=== PATIENT | male | born 1945 | race Caucasian/White ===

== ENCOUNTER 2021-04-02 06:11 | Day surgery (SDC) | payer MEDICARE, OTHER ==
[~2021-04-02] VITALS: Ht 180.3 cm; Wt 78.4 kg
[~2021-04-02 06:11] MED LIST: FINA5 PO; Inderal 20 mg T20 MG PO; METF500 PO; PROP10 PO; Prilosec Otc20 MG PO; SULTRIDS PO; TAMS.4ER PO; ZOCOR20 MG PO; Zocor20 MG PO
--- NOTE | 2021-04-02 07:00 | NUR ---
PT TO SDS VIA WC. History, Chart, Medications and Allergies reviewed before start of procedure. Patient confirms NPO status and agrees with scheduled surgery. Lungs clear T/O to Auscultation. Patient reports completing Chlorhexadine shower X2 prior to admission to hospital. CHEM BG 86.
--- NOTE | 2021-04-02 13:47 | NUR ---
PT ARRIVED TO THE FLOOR FROM PACU AT APPROX 1030. VITALS TAKEN, VITALS STABLE. SURGICAL INCISION C/D/I. POLAR PACK IN PLACE. PT REPORTS NO PAIN, NAUSEA, OR VOMITING AT THIS TIME. SMALL SNACK AND ICE WATER GIVEN.
--- NOTE | 2021-04-02 17:28 | NUR ---
SHIFT SUMMARY PT HAD TOTAL L KNEE TODAY. VITALS HAVE BEEN STABLE THROUGHOUT SHIFT. PT REPORTS LITTLE PAIN AND IS BEING TREATED PER EMAR. PT WORKED WITH PHYSICAL THERAPY AND IS STAND BY ASSIST WITH WALKER AND GAIT BELT. PT VOIDING WELL. GETTING IV ANTIBIOTICS PER EMAR. WILL REPORT TO ONCOMING RN.
--- NOTE | 2021-04-03 03:35 | NUR ---
SHIFT SUMMARY PT HAS BEEN ALERT, FORGETFUL AT TIMES - MOSTLY UPON AWAKENING. BED ALARM AND TAB ALARM IN USE OVERNIGHT FOR SAFETY. PT REPORTS PAIN WELL MANAGED OVERNIGHT. TOLERATING PO INTAKE, AMBULAING, AND VOIDING. POLAR PACK IN PLACE TO SURGICAL SITE THIS SHIFT. PT RESTING AT THIS TIME. CALL LIGHT IN REACH.
[2021-04-03 04:10] LABS: BASOPHILS ABSOLUTE AUTO 0.02 K/mm3 (0.00-0.23); BASOPHILS PERCENT AUTO 0 % (0-2); EOSINOPHILS ABSOLUTE AUTO 0.01 K/mm3 (0.00-0.68); EOSINOPHILS PERCENT AUTO 0 % (0-6); Hematocrit 36.7 % (37.0-53.0); Hemoglobin 12.2 g/dL (13.5-17.5); IMMATURE GRAN ABSOLUTE AUTO 0.08 K/mm3 (0.00-0.10); IMMATURE GRAN PERCENT AUTO 1 % (0-1); LYMPHOCYTES ABSOLUTE AUTO 1.97 K/mm3 (0.84-5.20); LYMPHOCYTES PERCENT AUTO 12 % (21-46); MONOCYTES ABSOLUTE AUTO 1.21 K/mm3 (0.16-1.47); MONOCYTES PERCENT AUTO 8 % (4-13); Mean Corpuscular HGB 31.6 pg (26.0-34.0); Mean Corpuscular HGB Conc 33.2 g/dL (31.5-36.5); Mean Corpuscular Volume 95 fL (80-100); Mean Platelet Volume 10.7 fL (9.1-12.4); NEUTROPHILS ABSOLUTE AUTO 12.95 K/mm3 (1.96-9.15); NEUTROPHILS PERCENT AUTO 80 % (41-73); Platelet Count 161 K/mm3 (150-400); RDW Coefficient Variation 13.2 % (11.7-14.2); RDW Standard Deviation 46.1 fL (35.1-46.3); Red Blood Cell Count 3.86 M/mm3 (4.30-5.90); White Blood Cell Count 16.24 K/mm3 (4.00-11.30)
[2021-04-03 04:37] LABS: Anion Gap 5 mmol/L (6-16); Blood Urea Nitrogen 26 mg/dL (8-24); Bun/Creatinine Ratio 22.2 (12.0-20.0); CO2, Blood 26 mmol/L (21-32); Calcium, Blood 9.1 mg/dL (8.5-10.1); Chloride, Blood 105 mmol/L (98-108); Creatinine, Blood 1.17 mg/dL (0.60-1.20); Glomerular Filtration Rate >60 (60-); Glucose, Blood 112 mg/dL (70-99); Potassium, Blood 4.6 mmol/L (3.5-5.5); Sodium, Blood 136 mmol/L (136-145)
--- NOTE | 2021-04-03 09:13 | NUR ---
A&OX4, UP TO CHAIR, DENIES ANY PAIN, WAITING FOR PT/OT SESSION, CALL LIGHT WITHIN REACH.
--- NOTE | 2021-04-03 14:42 | NUR ---
AMBULATED DOWN THE HALLS WITH THERAPY, TOLERATED WELL, PT ASSISTED BACK IN BED PT GETTING AGITATED WITH AND FIDGETING WITH GAIT BELT, PT STILL CONFUSED, BED ALARM ON, AT BEDSIDE.
[2021-04-03] MEDS ORDERED: Aspir 8181 MG PO (16:24)
[2021-04-03] MEDS ORDERED: TRAM50 PO (16:29)
--- NOTE | 2021-04-03 17:32 | NUR ---
SUMMARY PT CLEARED BY PHYSICAL THERAPY, STILL CONFUSED BUT FOLLOWING DIRECTIONS, DC INSTRUCTIONS GIVEN TO , VERBALIZED UNDERSTANDING, IV DC'D, CATH INTACT.
== END 2021-04-03 17:24 | disposition home or self-care (01) ==
LOC: ORSCMMR 06:11 → ORD 10:15 → ORSCMMR 10:15 → SURS 10:17 → ORSCMMR 04-03 17:24 → SURS 04-03 17:24
PROVIDERS: Orthopaedic Surgery
PROC: 8E0Y0CZ Robotic Assisted Procedure of Lower Extremity, Open Approach (ICD-10-PCS; principal; 2021-04-02 07:30)
PROC: 0SRD0JA Replacement of Left Knee Joint with Synthetic Substitute, Uncemented, Open Approach (ICD-10-PCS; principal; 2021-04-02 07:30)
DX: M17.12 Unilateral primary osteoarthritis, left knee (principal); E11.9 Type 2 diabetes mellitus without complications; Z87.891 Personal history of nicotine dependence; Z79.899 Other long term (current) drug therapy; Z79.84 Long term (current) use of oral hypoglycemic drugs
CPT/HCPCS: 27447; S2900; 36415; 73560-LT; 80048; 82947; 85025; 97110; 97116; 97161; 97530; A9270; C1776; J0171; J0690; J0735; J1100; J1885; J2250; J2405; J2795; J3010; J7120

== ENCOUNTER → 2021-07-03 | Outpatient (CLI) | payer MEDICARE, OTHER ==
[~2021-07-03] MED LIST changes: +Aspir 8181 MG PO; +TRAM50 PO
[2021-07-04 20:00] LABS: Adenovirus F 40/41 Not Detected (NOT DETECT); Astrovirus Not Detected (NOT DETECT); Campylobacter Sp Not Detected (NOT DETECT); Cryptosporidium Not Detected (NOT DETECT); Cyclospora Cayetanensis Not Detected (NOT DETECT); E. Coli O157 Not Detected (NOT DETECT); Entamoeba Histolytica Not Detected (NOT DETECT); Enteroaggregative E. coli-EAEC Not Detected (NOT DETECT); Enteropathogenic E. coli-EPEC Not Detected (NOT DETECT); Enterotoxigenic E. coli-ETEC Not Detected (NOT DETECT); Giardia Lamblia Not Detected (NOT DETECT); Norovirus GI/GII Not Detected (NOT DETECT); Plesiomonas Shigelloides Not Detected (NOT DETECT); Rotavirus A Not Detected (NOT DETECT); Salmonella Sp Not Detected (NOT DETECT); Sapovirus Not Detected (NOT DETECT); Shiga Toxin-prod E. coli-STEC Not Detected (NOT DETECT); Shigella/Enteroin E. coli-EIEC Not Detected (NOT DETECT); Vibrio Cholerae Not Detected (NOT DETECT); Vibrio Sp Not Detected (NOT DETECT); Yersinia Enterocolitica Not Detected (NOT DETECT)
== END | disposition home or self-care (01) ==
LOC: LAB SHORT 14:33 → LAB 14:33 → LAB SHORT 07-04 14:33
PROVIDERS: Family Medicine
DX: R19.7 Diarrhea, unspecified (principal); R63.4 Abnormal weight loss
CPT/HCPCS: 0097U

== ENCOUNTER → 2025-06-22 | Outpatient (CLI) | payer MEDICARE, OTHER ==
[2025-06-22 22:21] LABS: Microalbumin, Urine Quant. 247.0 mg/L (0.000-20.000); Protein, Urine Quantitative 48.7 mg/dL (0.0-11.9)
== END ==
LOC: LAB 14:50 → LAB SHORT 14:50
PROVIDERS: Internal Medicine Nephrology
DX: N18.30 Chronic kidney disease, stage 3 unspecified (principal); D63.1 Anemia in chronic kidney disease; N25.81 Secondary hyperparathyroidism of renal origin; E55.9 Vitamin D deficiency, unspecified; E29.1 Testicular hypofunction; N40.1 Benign prostatic hyperplasia with lower urinary tract symptoms; R76.9 Abnormal immunological finding in serum, unspecified; R94.6 Abnormal results of thyroid function studies; R94.5 Abnormal results of liver function studies
CPT/HCPCS: 81050; 82043; 82570; 84156